=== PATIENT | male | born 1970 | race Hispanic/Latino ===

== ENCOUNTER 2021-05-17 06:03 | Emergency (ER) | payer SELFPAY ==
[2021-05-17 07:46] LABS: #Eosinphils 0.1 10x3/uL (0.0-0.5); #Monocytes 0.5 10x3/uL (0.0-1.1); #Neutrophils 4.3 10x3/uL (1.5-8.4); %Basophils 0.4 % (0.0-2.0); %Eosinophils 1.2 % (0.0-6.0); %Lymphocytes 35.2 % (18.0-47.0); %Monocytes 6.4 % (0.0-10.0); %Neutrophils 56.5 % (40.0-75.0); Hemoglobin 15.3 g/dL (13.5-17.5); Mean Corpuscular HGB CONC 33.6 g/dL (32.0-36.0); Mean Corpuscular Hemoglobin 29.7 pg (27.0-33.0); Mean Corpuscular Volume 88.2 fl (81.2-95.1); Mean Platelet Volume 10.3 fl (7.4-10.4); Platelet Count 251 10x3/uL (150-450); RBC Distribution Width 11.9 % (11.5-14.5); Red Blood Cell (RBC) Count 5.16 10x6/uL (4.32-5.72); White Blood Cell (WBC) Count 7.6 10x3/uL (3.5-10.5)
[2021-05-17 08:03] LABS: ALT (SGPT) 175 U/L (8-55); AST (SGOT) 77 U/L (5-34); Albumin 4.3 g/dL (3.5-5.0); Alkaline Phosphatase 96 U/L (40-110); Anion Gap 13 mmol/L (10-20); BUN (Urea Nitrogen) 15 mg/dL (8.9-20.6); Calc. Creatinine Clearance 0 mL/min (70-130); Calcium 9.8 mg/dL (7.8-10.44); Carbon Dioxide 28 mmol/L (22-29); Globulin 2.9 g/dL (2.4-3.5); Glucose 220 mg/dL (70-105); Potassium 4.4 mmol/L (3.5-5.1); Protein, Total 7.2 g/dL (6.0-8.3); Sodium 138 mmol/L (136-145)
[2021-05-17 08:16] LABS: Chloride 101 mmol/L (98-107)
== END 2021-05-17 08:45 | disposition home or self-care (01) ==
LOC: CSHERS 06:03
DX: R55 Syncope and collapse (principal); R29.700 NIHSS score 0; E11.9 Type 2 diabetes mellitus without complications; Z87.891 Personal history of nicotine dependence
CPT/HCPCS: 36416; 70450; 71045; 80053; 84484; 85025; 93005

== ENCOUNTER 2022-12-22 10:30 | Emergency (ER) | payer SELFPAY ==
[2022-12-22] MEDS ORDERED: HYDROcodone/Acetaminophen 10/325 mg Tablet ONE (12:02)
[2022-12-22 12:07] LABS: Bilirubin Neg (Negative); Blood, Urine Negative (Negative); Clarity Clear (Clear); Glucose, Urine (Dipstick) Normal (Negative); Ketone, Urine Negative (Negative); Leukocyte Negative (Negative); Nitrite Negative (Negative); Protein, Urine (Dipstick) Negative (Neg-Trace); Specific Gravity, Urine 1.015 (1.005-1.030); Urobilinogen Normal mg/dL (Less than 2)
[2022-12-22] MEDS ORDERED: Orphenadrine Citrate 60 MG/2 ML VIAL IM SCH (12:15)
== END 2022-12-22 14:00 | disposition home or self-care (01) ==
LOC: CSHERS 10:30
DX: M54.50 Low back pain, unspecified (principal); E11.9 Type 2 diabetes mellitus without complications; Z87.891 Personal history of nicotine dependence
CPT/HCPCS: 81003; 96372; 99283; J2360

== ENCOUNTER 2023-06-02 20:51 | Emergency (ER) | payer SELFPAY | END 2023-06-02 23:03 | disposition left against medical advice (07) | LOC: CSHERS 20:51 | DX: Z53.21 Procedure and treatment not carried out due to patient leaving prior to being seen by health care provider (principal) ==

== ENCOUNTER 2025-06-12 15:09 | Emergency (ER) | payer SELFPAY ==
[2025-06-12] MEDS ORDERED: Ketorolac Tromethamine 30 MG (1 mL) VIAL ONE (16:39)
== END 2025-06-12 17:53 | disposition home or self-care (01) ==
LOC: CSHERS 15:09
DX: M54.50 Low back pain, unspecified (principal); M62.838 Other muscle spasm; E11.9 Type 2 diabetes mellitus without complications; I10 Essential (primary) hypertension; Z87.891 Personal history of nicotine dependence
CPT/HCPCS: 72131; 96372; 99283; J1885